=== PATIENT | female | born 1980 | race Caucasian/White ===

== ENCOUNTER 2019-12-06 15:50 | Outpatient (REF) | payer OTHER, SELFPAY ==
--- NOTE | 2019-12-06 | XR_ITS ---
EXAMINATION: XR LUMBOSACRAL SPINE WITH OBLIQUES CLINICAL INFORMATION: Low back pain. COMPARISON: None TECHNIQUE: AP, both oblique, and lateral views of the lumbar spine. Lateral view of the lumbosacral junction. FINDINGS: There are 5 lumbar-type nonrib-bearing vertebrae. The vertebral body heights and alignment are maintained. Intervertebral disc spaces are preserved. The posterior elements appear intact. Mild facet arthropathy is noted at L5-S1, greater on the left compared to right. Anastomotic daiana are noted in the pelvis. Paraspinous soft tissues are unremarkable. Limited evaluation of the sacroiliac joints is unremarkable. IMPRESSION: Mild facet arthropathy at L5-S1, specifically on the left. No evidence of compression fracture or suspicious osseous lesion.
== END 2019-12-06 15:51 | disposition home or self-care (01) ==
LOC: HO.XRAY 15:50
PROVIDERS: PCP Nurse Practitioner Primary Care; Visit Provider General Practice
DX: M54.42 Lumbago with sciatica, left side (principal)
CPT/HCPCS: 72110

== ENCOUNTER 2020-02-13 15:46 | Outpatient (REF) | payer OTHER, SELFPAY | END 2020-02-13 15:47 | disposition home or self-care (01) | LOC: HO.LAB 15:46 | PROVIDERS: Visit Provider Internal Medicine | DX: Z20.828 Contact with and (suspected) exposure to other viral communicable diseases (principal) | CPT/HCPCS: C9803; U0003 ==

== ENCOUNTER 2020-02-29 09:53 | Outpatient (REF) | payer OTHER, SELFPAY | END 2020-02-29 09:54 | disposition home or self-care (01) | LOC: HO.LAB 09:53 | PROVIDERS: Visit Provider Internal Medicine | DX: Z20.828 Contact with and (suspected) exposure to other viral communicable diseases (principal) | CPT/HCPCS: 36415; C9803; U0003 ==

== ENCOUNTER 2020-03-23 14:11 | Outpatient (REF) | payer OTHER, SELFPAY | END 2020-03-23 14:12 | disposition home or self-care (01) | LOC: HO.LAB 14:11 | PROVIDERS: Visit Provider Internal Medicine | DX: Z20.822 Contact with and (suspected) exposure to COVID-19 (principal) | CPT/HCPCS: 36415; C9803; U0003 ==

== ENCOUNTER 2020-07-25 23:14 | Emergency (ER) | payer MEDICAID, SELFPAY ==
[2020-07-25 23:26] VITALS: BP 113/70; PULSE 91; RESP 18; TEMP 35.7; O2SAT 98; BMI 29.1
--- NOTE | 2020-07-25 23:44 | ED_ITS ---
HPI - Allergic Reaction General Chief complaint: Allergic Reaction Stated complaint: allergic reaction Time Seen by Provider: 07/25/20 23:43 Source: patient Mode of arrival: ambulatory Limitations: no limitations History of Present Illness HPI narrative: Patient history of al allergic reaction to shrimp had shins at 18:00 with [place] thinking that she may not get the rash comes here for hives all over the body spreading to the face to the lips for last 1 hour no shortness of breath no speech problem no throat closing no nausea vomiting Related Data Previous Rx's Medication Instructions Recorded diphenhydramine HCl [Benadryl] 50 mg PO Q6H PRN #30 cap 07/26/20 prednisone 40 mg PO DAILY #10 tab 07/26/20 Allergies Allergy/AdvReac Type Severity Reaction Status Date / Time shrimp Allergy Severe SWELLING Verified 07/25/20 23:24 Review of Systems Review of Systems: Yes all other systems are reviewed and are negative [facility] Social History Social History Advance Directives: No Patient : No Physical Exam Vital Signs: Vital Signs: Last Vital Signs Temp 96.3 F L 07/25/20 23:26 Pulse 93 07/25/20 23:54 Resp 18 07/25/20 23:26 BP 113/70 07/25/20 23:26 Pulse Ox 98 07/25/20 23:26 Body Mass Index 29.1 Const: General: comfortable and no acute distress HENMT: Other: hives all over the face Eyes: General: appearance normal, both eyes and all related structures Neck: Neck: Yes normal visual inspection Chest: Chest palpation & inspection: normal inspection of the chest Resp: Effort & Inspection: normal respiratory effort Auscultation: clear to auscultation bilaterally Cardio: Palpation: normal PMI Rate: regular rate Rhythm: regular rhythm Heart sounds: S1 normal heart sound present and S2 normal heart sound present GI: Inspection: Yes normal to inspection Auscultation: normal bowel sounds Skin: Other: Hives all over the extremities and trunk including the face MDM - Allergic Reaction MDM Narrative Medical decision making narrative: Patient feeling much better now back to normal after appy and Benadryl and prednisone will discharge patient home Discharge Plan Discharge Clinical Impression: Allergic reaction Qualifiers: Encounter type: initial encounter Qualified Code(s): T78.40XA - Allergy, unspecified, initial encounter Patient Disposition: Home, Self-Care Instructions: Food Allergy (ED) Additional Instructions: Avoid eating shrimps. Start taking prednisone and Benadryl if any itching or rash in the morning Prescriptions: New prednisone 20 mg tablet 40 mg PO DAILY Qty: 10 RF: 0 diphenhydramine HCl [Benadryl] 25 mg capsule 50 mg PO Q6H PRN (Reason: allergic reaction) Qty: 30 RF: 0
[2020-07-25 23:54] VITALS: PULSE 93
[2020-07-25] MEDS: EPINEPHrine 1 MG/ML VIAL 0.3 MG IM (23:54)
[2020-07-25] MEDS: predniSONE 20 MG TABLET 60 MG PO (23:55)
[2020-07-25] MEDS: diphenhydrAMINE HCL 25 MG TABLET 50 MG PO (23:55)
[2020-07-26] VITALS: BP 118/73; PULSE 76; RESP 18; TEMP 36.1; O2SAT 98
== END 2020-07-26 01:20 | disposition home or self-care (01) ==
PROVIDERS: Emergency Provider Internal Medicine
DX: T78.1XXA Other adverse food reactions, not elsewhere classified, initial encounter (principal); L50.9 Urticaria, unspecified; X58.XXXA Exposure to other specified factors, initial encounter
CPT/HCPCS: 96372; 99284; J0171; Q0163

== ENCOUNTER 2020-08-02 09:13 | Outpatient (REF) | payer MEDICAID, SELFPAY ==
--- NOTE | ~2020-08-02 | US_ITS ---
EXAMINATION: US COMPLETE ABDOMEN WITH LIVER ELASTOGRAPHY CLINICAL INFORMATION: Chronic viral hepatitis C. COMPARISON: Ultrasound 04/19/2019 TECHNIQUE: Real-time imaging of the abdominal viscera. Noninvasive ultrasound liver fibrosis assessment is performed using Natalie ElastPQ point quantification shear wave elastography (pSWE) with a C5-2 MHz transducer. Multiple elastography samples are obtained. FINDINGS: PANCREAS: Normal. The visualized pancreatic head and body are normal in appearance. The remainder of the pancreas is obscured from visualization by the overlying bowel gas. ABDOMINAL AORTA: The proximal, middle, and distal aortic segments are normal in caliber. INFERIOR VENA CAVA: Visualized portions are normal. LIVER: Diffuse increased parenchymal echogenicity. No focal lesion or intrahepatic biliary duct dilatation. The right lobe measures 17.1 cm in length. The left lobe measures 12.5 cm in length. Portal flow is hepatopedal. Shear wave liver elastography median stiffness is 1.29 m/s (reference: normal median stiffness is 1.3 m/s or less). IQR/median stiffness to assess sampling precision is 0.16 (reference: good quality data set is IQR/median stiffness of 0.15 or less). GALLBLADDER: Normal. The gallbladder is physiologically distended without evidence of stones, sludge, polyps, wall thickening or pericholecystic fluid. COMMON BILE DUCT: Normal in caliber measuring 0.5 cm in diameter. RIGHT KIDNEY: Normal. No hydronephrosis. No renal calculi or focal parenchymal lesions. The kidney measures 8.9 cm in maximum dimension. LEFT KIDNEY: 0.8 cm lower pole anechoic avascular cyst. No hydronephrosis. No renal calculi or focal parenchymal lesions. The kidney measures 10.1 cm in maximum dimension. SPLEEN: Normal. The spleen measures 9.2 cm in maximum dimension. FREE FLUID: None. US/US abdomen comp w elastography IMPRESSION: 1. Increased hepatic echogenicity correlating with the clinical history of chronic viral hepatitis C. No focal lesion demonstrated by ultrasound. No biliary duct dilatation. 2. Liver elastography: Liver stiffness 1.29 m/s. As per the guidelines, this correlates with high probability of being normal. See attached guidelines. REFERENCE: Society of Radiologists in Ultrasound Liver Stiffness Thresholds (2019): LIVER STIFFNESS THRESHOLDS: *Liver Stiffness equal or less than 1.3 m/s: High probability of being normal. *Liver Stiffness less than 1.7 m/s: In the absence of other known clinical signs, rules out compensated advanced chronic liver disease. *Liver Stiffness 1.7-2.1 m/s: Suggestive of compensated advanced chronic liver disease but need further test for confirmation. *Liver Stiffness over 2.1 m/s: Rules in compensated advanced chronic liver disease. *Liver Stiffness over 2.4 m/s: Suggestive of clinically significant portal hypertension. QUALITY OF DATA SET: *IQR/Median value equal or less than 0.15 implies a quality data set. *IQR/Median value over 0.15 implies a poor quality data set. SIGNIFICANT CHANGE FROM PRIOR EXAM: Significant change if liver stiffness measurement is 10% or greater from prior exam. OTHER CONSIDERATIONS: The stage of liver fibrosis may be overestimated in the setting of acute hepatitis, liver inflammation, elevated liver function tests, hepatic vascular congestion, obstructive cholestasis, non-fasting state, and infiltrative diseases such as amyloidosis and lymphoma. In some patients with NAFLD, the liver stiffness thresholds for compensated advanced chronic liver disease may be lower. In causes other than viral hepatitis and NAFLD, liver stiffness thresholds are not well established.
== END 2020-08-02 09:14 | disposition home or self-care (01) ==
LOC: HO.US 09:13
PROVIDERS: Visit Provider Nurse Practitioner Primary Care
DX: B18.2 Chronic viral hepatitis C (principal)
CPT/HCPCS: 76705; 76981

== ENCOUNTER 2023-07-22 11:57 | Outpatient (REF) | payer MEDICAID, SELFPAY ==
[2023-07-22 14:05] LABS: TSH reflex Free T4 0.53 uIU/mL (0.32-4.0)
[2023-07-23 09:06] LABS: HBS Num1 13.67 mIU/mL (0-7.99); HBsAGNum1 0.29 S/CO (0.00-0.99); Hepatitis B Core Antibody Nonreactive (Nonreactive); Hepatitis B Surface Antigen Negative (Negative); ~HepC Num1 13.75 S/CO (0.00-0.79); ~Hepatitis B Surface Antibody REACTIVE (Nonreactive); ~Hepatitis C Antibody Reactive (Nonreactive)
[2023-07-23 09:10] LABS: Bacterial Vaginosis PCR POSITIVE (Negative); Candida Group PCR NOT DETECTED (Not Detect); Candida glab krusei PCR NOT DETECTED (Not Detect); Trichomonas vaginalis PCR NOT DETECTED (Not Detect)
[2023-07-24 16:49] LABS: Follicle Stimulating Hormone 73.8 mIU/mL
[2023-07-27 15:08] LABS: HCV Log PCR 6.23 Log IU/mL (NOT DETECTED); HepC Viral Load 1710000 IU/mL (NOT DETECTED)
[2023-07-31] LABS: Estradiol Ultra Sensitive 10 pg/mL
[2023-07-31 07:17] LABS: HPV 16 RNA NOT DETECTED (NOT DETECTED); HPV mRNA E6/E7 rflx Detected (Not Detected)
== END 2023-07-22 11:58 | disposition home or self-care (01) ==
LOC: HO.HHCL 11:57
PROVIDERS: Visit Provider Advanced Practice Midwife
DX: B19.20 Unspecified viral hepatitis C without hepatic coma (principal); N91.2 Amenorrhea, unspecified; N89.8 Other specified noninflammatory disorders of vagina
CPT/HCPCS: 0352U; 36415; 82670; 83001; 84443; 86704; 86706; 86803; 87340; 87522; 87624; 87625; 88142

== ENCOUNTER 2024-07-21 16:14 | Outpatient (REF) | payer MEDICAID, SELFPAY ==
--- OUTSIDE RECORDS SUMMARY | 2024-07-21 16:16 | XMS_ITS | Encounter Summary ---
Author Organization [employer] Address [address] [place] [address] Care Team Providers Care Coil Connector Name Role Phone Yuli Russo Primary Care Provider [phone] Encounter Details Date Type Department Care Team (Latest Contact Info) Description 07/21/2024 Travel Social History Tobacco Use Types Packs/Day Years Used Date Smoking Tobacco: Former Cigarettes Smokeless Tobacco: Never Alcohol Use Standard Drinks/Week Comments Not Currently 0 (1 standard drink = 0.6 oz pur e alcohol) Comments Unknown Sex and Gender Information Value Date Recorded Sex Assigned at Female 12/23/2021 10:28 AM EDT Legal Sex Female 10:28 AM EDT Gender Identity Female 12/23/2021 10:28 AM EDT Sexual Orientation Straight 12/23/2021 10 :28 AM EDT documented as of this encounter Plan of Treatment Not on file documented as of this encounter Visit Diagnoses Not on filedocumented in this encounter Care Teams Coil Connector Relationship Specialty Start Date End Date Yuli Russo ANP [address] [place] [id number] PCP - General Family Medicine 12/06/19 documented as of this encounter
[2024-07-21 21:30] LABS: Bacterial Vaginosis PCR POSITIVE (Negative); Candida Group PCR NOT DETECTED (Not Detect); Candida glab krusei PCR NOT DETECTED (Not Detect); Trichomonas vaginalis PCR NOT DETECTED (Not Detect)
[2024-07-27 11:33] LABS: HPV Genotype 16 Negative (Negative); HPV Genotype 18 Negative (Negative); HPV High Risk Positive (Negative)
== END 2024-07-21 16:15 | disposition home or self-care (01) ==
LOC: HO.HHCLNP 16:14
PROVIDERS: Visit Provider Advanced Practice Midwife
DX: N89.8 Other specified noninflammatory disorders of vagina (principal); N91.2 Amenorrhea, unspecified; R87.810 Cervical high risk human papillomavirus (HPV) DNA test positive
CPT/HCPCS: 81515; 87626; 88175